=== PATIENT | male | born 1995 | race Two or more races ===

== ENCOUNTER → 2017-03-14 | Outpatient (REF) | payer OTHER | LOC: M SFHCLERA 19:45 | DX: J02.9 Acute pharyngitis, unspecified (principal) ==

== ENCOUNTER → 2017-05-20 | Outpatient (REF) | payer OTHER ==
[2017-05-21 01:59] LABS: CHLAMYDIA DNA AMPLIFICATION NEGATIVE (NEGATIVE); GC DNA AMPLIFICATION NEGATIVE (NEGATIVE)
== END ==
LOC: M SFHCLERA 19:02
DX: R30.0 Dysuria (principal)